=== PATIENT | female | born 1950 | race Caucasian/White ===

== ENCOUNTER → 2016-10-07 | Outpatient (CLI) | payer MEDICARE, OTHER ==
[~2016-10-07] MED LIST: ASCORBIC ACID500 MG PO; COZAAR DPS50 MG PO; CRAN-MAX500 MG PO; CYMBALTA60 MG PO; ENDOCET 5-3251 EACH PO; FENOFIBRATE134 MG PO; GLUCOPHAGE-DPS500 MG PO; HUMALOG100 UNIT/1 SQ; KLOR-CON M2020 ME1 PO; LANTUS100 UNITS/ SQ; LAXATIVE5 MG PO; LOVENOX150 MG/1 M SQ; LYRICA75 MG PO; MUCINEX600 MG PO; OXYCONTIN10 MG PO; PROTONIX40 MG PO; PROVENTIL HFA6.7 GM IH; SORINE80 MG PO; SYMBICORT160 MCG/6 IH; VITAMIN A8000 UNIT PO; VITAMIN D31000 UNIT PO; VOLTAREN 1% GE100 GM TP; ZANAFLEX4 MG PO; ZYRTEC DPS10 MG PO
== END | disposition home or self-care (01) ==
LOC: RAD.S 13:30
DX: C34.32 Malignant neoplasm of lower lobe, left bronchus or lung (principal); Z98.890 Other specified postprocedural states; J98.4 Other disorders of lung

== ENCOUNTER 2016-10-17 07:33 | Day surgery (SDC) | payer MEDICARE, OTHER ==
[~2016-10-17] VITALS: Ht 162.6 cm; Wt 101.0 kg
[2017-02-20] MEDS ORDERED: ASCORBIC ACID500 MG PO (18:34)
[2017-02-20] MEDS ORDERED: PROVENTIL HFA6.7 GM IH (18:34)
[2017-02-20] MEDS ORDERED: LYRICA75 MG PO (18:34)
[2017-02-20] MEDS ORDERED: HUMALOG100 UNIT/1 SQ ×2 (18:35)
[2017-02-20] MEDS ORDERED: LAXATIVE5 MG PO (18:35)
[2017-02-20] MEDS ORDERED: SYMBICORT160 MCG/6 IH (18:36)
[2017-02-20] MEDS ORDERED: ZYRTEC DPS10 MG PO (18:36)
[2017-02-20] MEDS ORDERED: LANTUS100 UNITS/ SQ (18:36)
[2017-02-20] MEDS ORDERED: CRAN-MAX500 MG PO (18:37)
[2017-02-20] MEDS ORDERED: VITAMIN D31000 UNIT PO (18:37)
[2017-02-20] MEDS ORDERED: CYMBALTA60 MG PO (18:38)
[2017-02-20] MEDS ORDERED: VOLTAREN 1% GE100 GM TP (18:38)
[2017-02-20] MEDS ORDERED: MUCINEX600 MG PO (18:39)
[2017-02-20] MEDS ORDERED: GLUCOPHAGE-DPS500 MG PO (18:39)
[2017-02-20] MEDS ORDERED: FENOFIBRATE134 MG PO (18:39)
[2017-02-20] MEDS ORDERED: COZAAR DPS50 MG PO (18:39)
[2017-02-20] MEDS ORDERED: PROTONIX40 MG PO (18:40)
[2017-02-20] MEDS ORDERED: OXYCONTIN10 MG PO (18:40)
[2017-02-20] MEDS ORDERED: ENDOCET 5-3251 EACH PO (18:40)
[2017-02-20] MEDS ORDERED: ZANAFLEX4 MG PO (18:41)
[2017-02-20] MEDS ORDERED: SORINE80 MG PO (18:41)
[2017-02-20] MEDS ORDERED: KLOR-CON M2020 ME1 PO (18:41)
[2017-02-20] MEDS ORDERED: VITAMIN A8000 UNIT PO (18:42)
[2017-02-20] MEDS ORDERED: LOVENOX150 MG/1 M SQ (18:43)
== END 2016-10-17 12:30 | disposition home or self-care (01) ==
LOC: RAD.S 07:33 → EDSTATUS 09:00 → RAD.S 09:00
PROC: 0BBL3ZX Excision of Left Lung, Percutaneous Approach, Diagnostic (ICD-10-PCS; principal; 2016-10-17)
DX: C34.92 Malignant neoplasm of unspecified part of left bronchus or lung (principal); Z79.899 Other long term (current) drug therapy

== ENCOUNTER 2016-11-09 06:59 | Day surgery (SDC) | payer MEDICARE, OTHER ==
[~2016-11-09] VITALS: Ht 162.6 cm
--- NOTE | 2016-11-22 11:26 | OR ---
ADMIT: 11/09/2016 RM/LOC: [facility] MR#: [id number] [id number] G[facility]RIELLA SANDERS [address] [place] [address] Operative/Delivery Room Report SEX: F AGE: 66 : 1950 SURGERY DATE: 11/09/2016 SURGEON: Troy Franks MD PREOPERATIVE DIAGNOSIS: Recurrent lung cancer, need for Ocjtap-X-Zdsn for chemotherapy. POSTOPERATIVE DIAGNOSIS: Recurrent lung cancer, need for Izpovz-S-Qahl for chemotherapy. PROCEDURE PERFORMED: Right internal jugular PowerPort placement with ultrasound and fluoro. ANESTHESIA: Sedation and local. ESTIMATED BLOOD LOSS: Less than 10 mL. DESCRIPTION OF PROCEDURE: After appropriate informed consent was obtained, the patient was brought to the operating room. IV sedation was provided. Her neck and chest were prepped and draped in a sterile fashion including a sterile Ioban drape. The ultrasound was used to identify a large right internal jugular vein. Lidocaine 1% was injected in the skin and deep tissues directly over this vein. A small incision was made with #11 blade. An 18- gauge Cook needle on a syringe was used to access the right internal jugular vein under Real-time ultrasound guidance. A picture was taken for the patient's permanent record. Had a good return of dark red, nonpulsatile blood. Guidewire was passed easily into the jugular, but got hung up at the junction with the superior vena cava. It took quite a bit of manipulation of the wire and ultimately, I was able to get the wire to go down the superior vena cava. With this accomplished, additional local was injected in the skin deep tissues in the right upper chest wall. An incision was created and a subcutaneous pocket was created. Tubing was then tunneled from the reservoir ADMIT: 11/09/2016 RM/LOC: [facility] MR#: [id number] [facility] [address] [place], [place] [address] GABRIELL[place] SANDERS [address] [place] [address] Operative/Delivery Room Report SEX: F AGE: 66 : 1950 site up to the neck incision site. A split sheath dilator was then passed over the wire under direct vision with fluoro. The wire and dilator were removed. Tubing was then passed down through the split sheath, and the split sheath was removed. Tubing was then pulled back until tip resided in the atriocaval junction. Tubing was cut at approximately 25 cm, attached to PowerPort reservoir, and locked into place. The reservoir was then tacked down to the chest wall fascia using two 0 Ethibond sutures. The reservoir was accessed, aspirated, and flushed easily. It was then flushed with heparinized saline. The wound was then closed with 3-0 Vicryl in the dermal layer and running 4-0 Monocryl in the subcuticular layer. Neck incision was closed with single 4-0 Monocryl. Sterile dressings were applied. The patient tolerated the procedure well and was taken to the recovery room in stable condition. Troy Franks MD/ jah JOB #: [id number] CC: Troy Franks, Attending Physician Beckie Anguiano, Family Physician
[2017-02-20] MEDS ORDERED: ASCORBIC ACID500 MG PO (18:34)
[2017-02-20] MEDS ORDERED: PROVENTIL HFA6.7 GM IH (18:34)
[2017-02-20] MEDS ORDERED: LYRICA75 MG PO (18:34)
[2017-02-20] MEDS ORDERED: LAXATIVE5 MG PO (18:35)
[2017-02-20] MEDS ORDERED: HUMALOG100 UNIT/1 SQ ×2 (18:35)
[2017-02-20] MEDS ORDERED: LANTUS100 UNITS/ SQ (18:36)
[2017-02-20] MEDS ORDERED: ZYRTEC DPS10 MG PO (18:36)
[2017-02-20] MEDS ORDERED: SYMBICORT160 MCG/6 IH (18:36)
[2017-02-20] MEDS ORDERED: VITAMIN D31000 UNIT PO (18:37)
[2017-02-20] MEDS ORDERED: CRAN-MAX500 MG PO (18:37)
[2017-02-20] MEDS ORDERED: CYMBALTA60 MG PO (18:38)
[2017-02-20] MEDS ORDERED: VOLTAREN 1% GE100 GM TP (18:38)
[2017-02-20] MEDS ORDERED: COZAAR DPS50 MG PO (18:39)
[2017-02-20] MEDS ORDERED: GLUCOPHAGE-DPS500 MG PO (18:39)
[2017-02-20] MEDS ORDERED: MUCINEX600 MG PO (18:39)
[2017-02-20] MEDS ORDERED: FENOFIBRATE134 MG PO (18:39)
[2017-02-20] MEDS ORDERED: PROTONIX40 MG PO (18:40)
[2017-02-20] MEDS ORDERED: OXYCONTIN10 MG PO (18:40)
[2017-02-20] MEDS ORDERED: ENDOCET 5-3251 EACH PO (18:40)
[2017-02-20] MEDS ORDERED: SORINE80 MG PO (18:41)
[2017-02-20] MEDS ORDERED: ZANAFLEX4 MG PO (18:41)
[2017-02-20] MEDS ORDERED: KLOR-CON M2020 ME1 PO (18:41)
[2017-02-20] MEDS ORDERED: VITAMIN A8000 UNIT PO (18:42)
[2017-02-20] MEDS ORDERED: LOVENOX150 MG/1 M SQ (18:43)
== END 2016-11-09 11:19 | disposition home or self-care (01) ==
LOC: SSS 06:59
PROC: B543ZZA Ultrasonography of Right Jugular Veins, Guidance (ICD-10-PCS; principal; 2016-11-09)
PROC: 05HM33Z Insertion of Infusion Device into Right Internal Jugular Vein, Percutaneous Approach (ICD-10-PCS; principal; 2016-11-09)
PROC: B513YZA Fluoroscopy of Right Jugular Veins using Other Contrast, Guidance (ICD-10-PCS; principal; 2016-11-09)
DX: C34.92 Malignant neoplasm of unspecified part of left bronchus or lung (principal); I10 Essential (primary) hypertension; E11.9 Type 2 diabetes mellitus without complications; J44.9 Chronic obstructive pulmonary disease, unspecified; Z87.891 Personal history of nicotine dependence; I48.91 Unspecified atrial fibrillation; Z96.651 Presence of right artificial knee joint; Z96.642 Presence of left artificial hip joint; Z90.49 Acquired absence of other specified parts of digestive tract; Z79.899 Other long term (current) drug therapy

== ENCOUNTER → 2016-12-23 | Outpatient (CLI) | payer MEDICARE, OTHER | END | disposition home or self-care (01) | LOC: RAD.S 08:10 | DX: C34.32 Malignant neoplasm of lower lobe, left bronchus or lung (principal); I31.3 Pericardial effusion (noninflammatory); E27.8 Other specified disorders of adrenal gland; D73.89 Other diseases of spleen; R91.8 Other nonspecific abnormal finding of lung field ==